=== PATIENT | female | born 1985 | race Two or more races ===

== ENCOUNTER 2024-08-23 18:22 | Emergency (ER) | payer MEDICAID, SELFPAY ==
[2024-08-23 18:25] VITALS: BP 181/114; PULSE 124; RESP 18; TEMP 37.2; O2SAT 96; BMI 33.9
[2024-08-23 19:09] VITALS: PULSE 124; RESP 18; O2SAT 98
--- NOTE | 2024-08-23 19:14 | EKG_ITS ---
[facility] (Formerly [facility]) Test Date: 2024-08-23 Pat Name: MARISA BRANNON Department: Room: - Gender: Female Superintendent General: : 1985 Requested By: ED Temporary Provider Order Number: [id number] Reading MD: ED Temporary Provider Measurements Intervals Brethren Rate: 115 P: 11 NM: 155 QRS: 6 QRSD: 82 T: 25 QT: 320 QTc: 443 Interpretive Statements SINUS TACHYCARDIA LEFT VENTRICULAR HYPERTROPHY AND ST-T CHANGE [VOLTAGE CRITERIA PLUS ST/T ABNORMALITY] No previous ECG available for comparison /[email or web address]/[id number]
--- NOTE | 2024-08-23 19:20 | EDNOTE_ITS ---
ED Chest Pain RME/HPI General Chief Complaint: Chest Pain Stated Complaint: CHEST PAIN Time Seen by Provider: 08/23/24 19:20 Arrival date/time: 08/23/24 18:22 RME / HPI RME / HPI narrative: This section includes all my notes and documentations, including HPI, PE, and ED course. Aguila Chamberlain MD HPI: 39yo female MARÍA from home presents to the ED for a chief complaint of intermittent right-sided chest pain x 2 hours [employer]. Patient describes her pain as sharp in nature. No radiation or migration. Patient took ibuprofen at home with improvement of symptoms. She currently rates her pain a 0 out of 10 in severity. She endorses having a cough and subjective fever for about a week, reporting she has the flu , but has not been swabbed. She denies any chills, N/V or any other associated symptoms. No other complaints reported. ROS: All negative except as documented in HPI. Physical Exam: General: Alert and oriented. Hacking cough noted. Eyes: Conjunctivae and lids clear. ENT: No nasal congestion. Neck: Supple. Heart: Tachycardic. Regular rhythm. Chest tenderness on palpation. Lungs: No respiratory distress. Good air movement with scattered rhonchi. Abdomen: Soft and nontender. Legs: No clubbing, cyanosis, edema. Skin: Warm and dry. Neuro: Alert and oriented X 3. I reviewed all diagnostic test results. My interpretation of the EKG is sinus rhythm with no acute ST?T changes. My interpretation of the chest x-ray is increased bronchial markings. Blood tests and urine tests unremarkable, except hyperglycemia. At this point, diagnoses include chest wall pain and lower respiratory infection. Treatment here included Insulin and Tylenol with Codeine and Zithromax. Significant improvement noted. Recommended a trial of outpatient treatment and outpatient cardiac workup. Based on my best medical judgment, made decision no further evaluation or treatment indicated at this time. Patient understands and agrees to the discharge instructions customized and printed, see below. Discharge instructions from Dr. Chamberlain: 1. After extensive evaluation, there is no life-threatening condition. Such as heart attack or pulmonary embolism (blood clots in your lungs) or pneumothorax ( collapsed lung). 2. Your pain is originating from the chest wall and not from an internal organ. The chest wall has many joints and muscles between the ribs, so sprains and strains are common. 3. Apply ice or heat if helpful. Tylenol/ibuprofen as needed. 4. Your cough is due to bronchitis. --No physical exertion for 3 days to help rest the lungs. ?No smoking or exposure to smoking or pets or dust or cold air. --Zithromax to kill the germs causing the bronchitis. --Albuterol 2 puffs every 4-6 hours today and tomorrow to help keep the airways open. Then as needed for cough or shortness of breath. 5. See a private doctor on 08/26/2024 for recheck and further care. To make sure there is no serious underlying heart condition, ask to help you get more tests for your heart that cannot be done here in the ER. Such as Holter Monitor (cardiac monitoring at home from a day to even a month), heart stress test (on treadmill or with medication), echocardiogram (imaging of your heart structures), heart catherization (checking for blockages in your heart arteries), and a referral to see a [employer]. 6. Seek immediate medical care with worsening or with any concerns. Aguila Chamberlain MD Related Data Previous Rx's ?Medication ?Instructions ?Recorded albuterol sulfate 90 mcg/actuation 2 puff inhalation Q 6H PRN 08/23/24 aerosol inhaler shortness of breath or wheez ing #8.5 grams azithromycin 500 mg tablet 500 mg PO QDAY 3 days #3 ta bs 08/23/24 (Zithromax TRI-ISADORA) Allergies Allergy/AdvReac Type Severity Reaction Status Date / Time No Known Allergies Allergy Verified 08/23/24 19:08 Review of Systems Review of Systems Systems Reviewed: All systems reviewed, normal except as documented Past Medical History Past Medical History CARDIAC: Negative Congestive Heart Failure RESPIRATORY: Negative Chronic Obstructive Pulmonary Disease (COPD) GENITOURINARY: Negative Renal Disease ENDOCRINE: Negative Diabetes Mellitus Type 1 or Diabetes Mellitus Type 2 Social History SMOKING STATUS: Former smoker ED Exam Narrative Physical exam: As noted in HPI. Course Course Course Narrative: CXR is ordered for determining the etiology of chest pain. Quality Measures none Orders Category Date Time Status Bedside COVID-19 Antigen Test NOW Care 08/23/24 19:26 Completed Bedside Influenza A&B Antigen Test NOW Care 08/23/24 19:26 Completed EKG (ED ONLY) *Do not use* NOW Care 08/23/24 19:14 Completed Saline [Insert IV] NOW Care 08/23/24 19:26 Completed EKG (ED Only) Stat Exams 08/23/24 19:14 Draft XR chest 1V portable Stat Exams 08/23/24 19:27 Completed BNP [B-Type Natriuretic Peptide] Stat Lab 08/23/24 19:46 Completed CBC Stat Lab 08/23/24 19:46 Completed CMP [Comprehensive Metabolic Panel] Stat Lab 08/23/24 19:46 Completed D-Dimer Stat Lab 08/23/24 19:46 Completed Magnesium Stat Lab 08/23/24 19:46 Completed RSV [Respiratory Syncytial Virus Ag] Stat Lab 08/23/24 19:27 Ordered TSH [Thyroid Stimulating Hormone] Stat Lab 08/23/24 19:46 Completed Troponin I Stat Lab 08/23/24 19:46 Completed UA, C/S IF [Urinalysis, C/S if Indicated] Stat Lab 08/23/24 19:28 Completed ACETAMINOPHEN w/COD 300-30 [Tylenol w/Cod #3] Med 08/23/24 19:26 Discontinued 2 tab PO X1 ONE Azithromycin Po [Zithromax PO] Med 08/23/24 21:17 Discontinued 500 mg PO X1 ONE Insulin Regular Med 08/23/24 20:50 Discontinued 5 unit IV X1 ONE Vital Signs Vital signs: Vital Signs Temperature 98.9 F 08/23/24 18:25 Pulse Rate 124 H 08/23/24 18:25 Respiratory Rate 18 08/23/24 18:25 Blood Pressure 181/114 H 08/23/24 18:25 Pulse Oximetry (%) 96 08/23/24 18:25 Oxygen Delivery Method Room Air 08/23/24 18:25 Chest Pain MDM Narrative MDM Narrative:: Scribe Attestation: 08/23/24 Lizz Pope am scribing for and in the presence of Dr. Chamberlain. Patient data External records reviewed:: [facility] previous records (Per chart review, patient has no relevant previous ED visits.) Clinical information provided by:: patient and EMS Social determinants that could affect healthcare access:: none Patient has the following chronic illnesses:: none How is presenting disease/condition affected by chronic disease/condition?: no chronic disease Evaluation data The following diagnostics were reviewed and interpreted by me:: lab results, radiology exam(s) and EKG tracing(s) (My interpretation of the EKG is: Sinus tachycardia (115 bpm) with nonspecific ST-T changes. Aguila Chamberlain MD) Lab and/or radiology exams considered but not ordered:: none Interpretation Summary: Chest wall pain, Lower respiratory infection Medications / Prescriptions Medications or Prescriptions considered but not ordered:: none Medication administrations:: Medication Administration History Discontinued Medications Acetaminophen/Codeine Phosphate (Acetaminophen W/Cod 300-30 Tablet) 2 tab PO X1 ONE Stop: 08/23/24 19:27 Last Admin: 08/23/24 19:51 Dose: Not Given Documented By: CVL Non-Admin Reason: Change of Condition Azithromycin (Azithromycin 250 Mg Tablet) 500 mg PO X1 ONE Stop: 08/23/24 21:18 Insulin Human Regular (Insulin Hum Regular 1 Unit/0.01 Ml (Per Unit)) 5 unit IV X1 ONE Stop: 08/23/24 20:51 Last Admin: 08/23/24 21:08 Dose: 5 unit Documented By: LENORE Co-signed By: NATTY Insulin, Tylenol with Codeine, Zithromax Consultations Consultation(s) initiated? (list below): No Diagnosis Chest Pain Differential Diagnosis: fracture of rib, pneumothorax, stable angina, unstable angina pectoris, atypical chest pain, st elevation myocardial infarction, costochondritis and other (COVID/influenza/bronchitis/pneumonia) Most likely diagnosis given after review of the tests above:: Chest wall pain, Lower respiratory infection Admission Indicated Admission indicated?: not indicated Explain why admission is indicated or not indicated:: No criteria for admission. Admission Request Was there a request for admission?: No Disposition Plan Disposition Plan: Discharge Discharge Attestation Discharge Attestation: The patient and all family members were given an opportunity to ask questions and understood the discharge instructions. Discharge instructions specifically effects, indications for sooner follow up or return to the emergency department, and the expected course of current diagnosis. Patient condition: Stable Discharge Plan Plan Patient Disposition: HOME (Self Care) Prescriptions/Referrals Prescriptions/Med Rec: New albuterol sulfate 90 mcg/actuation HFA aerosol inhaler 2 puff inhalation Q6H PRN (Reason: shortness of breath or wheezing) Qty: 8.5 0RF azithromycin [Zithromax TRI-ISADORA] 500 mg tablet 500 mg PO QDAY 3 Days Qty: 3 0RF Referrals: Luis Mckeon MD [Primary Care Provider] - In 1 week Problem List Clinical Impression: Chest wall pain, Lower respiratory infection Patient/Caregiver Discharge Instructions Discharge Activity: activity as tolerated Education Materials: ED Bronchitis, Antibiotics (Child), ED Chest Pain, Uncertain Cause Additional Instructions: Discharge instructions from Dr. Chamberlain: 1. After extensive evaluation, there is no life-threatening condition.? Such as heart attack or pulmonary embolism (blood clots in your lungs) or pneumothorax (collapsed lung). 2. Your pain is originating from the chest wall and not from an internal organ.? The chest wall has many joints and muscles between the ribs, so sprains and strains are common.?? 3. Apply ice or heat if helpful.? Tylenol/ibuprofen as needed. 4. Your cough is due to bronchitis. --No physical exertion for 3 days to help rest the lungs. ?No smoking or exposure to smoking or pets or dust or cold air. --Zithromax to kill the germs causing the bronchitis. --Albuterol 2 puffs every 4-6 hours today and tomorrow to help keep the airways open. Then as needed for cough or shortness of breath. 5. See a private doctor on 08/26/2024 for recheck and further care. To make sure there is no serious underlying heart condition, ask to help you get more tests for your heart that cannot be done here in the ER.? Such as Holter Monitor (cardiac monitoring at home from a day to even a month), heart stress test (on treadmill or with medication), echocardiogram (imaging of your heart structures), heart catherization (checking for blockages in your heart arteries), and a referral to see a [employer].? 6. Seek immediate medical care with worsening or with any concerns.?? Print Language: Lebanese Stand Alone Forms: Rhonda Award Info., Patient Portal Info Letter
--- NOTE | 2024-08-23 19:27 | XR_ITS ---
Examination: AP chest single view Technique one AP portable upright chest single view Exam date and time: 09/23/2024 1938 hrs. Indications: Shortness of breath today. Findings: Normal heart size Lungs are clear. The osseous structures are intact Impression: No active disease
[2024-08-23 19:46] VITALS: BP 147/96; PULSE 117; RESP 18; TEMP 37.3; O2SAT 97
[2024-08-23 20:04] VITALS: BP 158/87; PULSE 109; RESP 18; O2SAT 97
[2024-08-23 20:10] LABS: Basophils % (Auto) 0 % (0-2.5); Eosinophils # (Auto) 0.1 Thou/mm3 (0.0-0.5); Eosinophils % (Auto) 2 % (0-10); Hematocrit 40.2 % (36.0-46.0); Hemoglobin 13.2 g/dL (12.0-16.0); Immature Granulocytes % (Auto) 0 % (0-0); Immature Granulocytes Auto 0.03 Thou/mm3 (0.00-0.00); Lymphocytes # (Auto) 1.3 Thou/mm3 (1.0-4.8); Lymphocytes % (Auto) 17 % (10-50); Mean Corpuscular HGB Conc 32.8 g/dl (31.0-37.0); Mean Corpuscular Hemoglobin 27.7 pg (25.0-35.0); Mean Corpuscular Volume 85 fL (80-100); Monocytes # (Auto) 0.7 Thou/mm3 (0.0-0.8); Monocytes % (Auto) 9 % (0-12); Neutrophils # (Auto) 5.5 Thou/mm3 (1.8-7.7); Neutrophils % (Auto) 72 % (37-80); Nucleated Red Blood Cell % 0 /100 WBC (0); Platelet Count 171 Thou/mm3 (140-440); RDW Standard Deviation 40.9 fL (36.4-46.3); Red Blood Count 4.76 Miln/mm3 (4.00-5.20); White Blood Count 7.6 Thou/mm3 (3.6-11.0)
[2024-08-23 20:26] LABS: B-Type Natriuretic Peptide < 20 pg/mL (0-100)
[2024-08-23 20:29] LABS: Alanine Aminotransferase 46 U/L (10-49); Albumin, Serum 4.3 gm/dL (3.5-5.0); Albumin/Globulin Ratio 1.2 (1.2-2.2); Alkaline Phosphatase 88 U/L (46-116); Anion Gap 10 (7-16); Aspartate Amino Transferase 48 U/L (0-34); BUN/Creatinine Ratio 11 Ratio (12-20); Bilirubin,Total 0.5 mg/dL (0.3-1.2); Blood Urea Nitrogen 9 mg/dL (9-23); Calcium 9.1 mg/dL (8.3-10.6); Calcium (Corrected) 9.1 mg/dL (8.5-10.1); Carbon Dioxide 23.8 mMol/L (20.0-31.0); Chloride 105 mMol/L (98-107); Creatinine (Component) 0.8 mg/dL (0.6-1.3); Globulin 3.7 gm/dL (2.3-3.5); Glucose 309 mg/dL (74-106); Magnesium 1.8 mg/dL (1.6-2.6); Osmolality,Calculated 288 (275-295); Potassium 3.9 mMol/L (3.4-5.1); Sodium 139 mMol/L (136-145); Thyroid Stimulating Hormone 3.73 uIU/mL (0.55-4.78); Troponin I < 0.002 ng/mL (0.0-0.045); eGFR > 60 See Note
[2024-08-23 20:34] LABS: Bilirubin,Urine Negative (Negative); Blood,Urine Negative (Negative); Clarity,Urine Clear (Clear/Hazy); Collection Type, Urine Clean Catch; Color,Urine Colorless (Lt Yel-Yel); Culture Indicated,Urine Not Indicated; Glucose, Urine 4+ (Negative); Ketones,Urine Negative (Negative); Leukocyte Esterase,Urine Negative (Negative); Nitrite,Urine Negative (Negative); PH,Urine 6.5 (5.0-7.0); Protein,Urine Negative (Neg - Trace); RBC,Urine 4 /hpf (0-3); Specific Gravity,Urine 1.038 (1.001-1.035); Squamous Epithelial Cell,Urine 1 /hpf (0-5); Urobilinogen,Urine Negative mg/dL (0.0-1.0); WBC,Urine 2 /hpf (0-5)
[2024-08-23 20:55] LABS: D-Dimer < 250 ng/mL (<600)
[2024-08-23] MEDS: INSULIN HUM REGULAR 1 UNIT/0.01 ML (PER UNIT) 5 UNIT IV (21:08)
[2024-08-23 21:14] VITALS: BP 144/78; PULSE 88; RESP 20; O2SAT 95
[2024-08-23] MEDS: AZITHROMYCIN 250 MG TABLET 500 MG PO (21:27)
[2024-08-23 21:44] LABS: Respiratory Syncytial Virus Ag Negative (Negative)
[2024-08-23 21:45] VITALS: BP 138/100; PULSE 102; RESP 16; O2SAT 97
== END 2024-08-23 21:46 | disposition home or self-care (01) ==
PROVIDERS: Emergency Provider Emergency Medicine; PCP Family Medicine
DX: J22 Unspecified acute lower respiratory infection (principal); R00.0 Tachycardia, unspecified; Z87.891 Personal history of nicotine dependence
CPT/HCPCS: 36415; 71045; 80053; 81001; 83735; 83880; 84443; 84484; 85025; 85379; 87400; 87634; 87811; 93005; 99284; J1815; A9270

== ENCOUNTER 2025-03-18 20:24 | Emergency (ER) | payer MEDICAID, SELFPAY ==
[2025-03-18 20:37] VITALS: BP 156/92; PULSE 98; RESP 18; TEMP 36.7; O2SAT 96; BMI 35.9
[2025-03-18 20:58] LABS: Collection Type, Urine Clean Catch
--- NOTE | 2025-03-18 21:09 | PD.EDNV ---
Nausea/Vomit./Diarrhea-RME/HPI General Chief complaint: Nausea/Vomiting/Diarrhea Stated complaint: NAUSEA Time Seen by Provider: 03/18/25 21:09 Arrival date/time: 03/18/25 20:24 40F with history of DM and seizures presents to ED with 1 day of N.V. Patient denies dysuria and diarrhea. Patient just wants to see if she's . Limitations: no limitations Related Data Previous Rx's ?Medication ?Instructions ?Recorded albuterol sulfate 90 mcg/actuation 2 puff inhalation Q6H PRN 08/23/24 aerosol inhaler shortness of breath or wheezing #8.5 grams ondansetron 4 mg disintegrating 4 mg PO Q8H PRN nausea and 03/18/25 tablet vomiting #14 tabs Allergies Allergy/AdvReac Type Severity Reaction Status Date / Time No Known Allergies Allergy Verified 08/23/24 19:08 Review of Systems Review of Systems Systems Reviewed: All systems reviewed, normal except as documented Gastrointestinal Gastrointestinal: Reports as per HPI and Reports nausea Past Medical History Past Medical History CARDIAC: Negative Congestive Heart Failure RESPIRATORY: Negative Chronic Obstructive Pulmonary Disease (COPD) GENITOURINARY: Negative Renal Disease ENDOCRINE: Positive Diabetes Mellitus Type 2; Negative Diabetes Mellitus Type 1 Social History SMOKING STATUS: Never smoker ED Exam General Limitations: Present no limitations General appearance: Present alert and in no apparent distress Head Head exam: Present atraumatic Neck Neck exam: Present normal inspection, full ROM and trachea midline Chest Chest inspection: Present normal inspection and symmetric chest wall rise Neurological Exam Neurological exam: Present alert and oriented X3 Psychiatric Psychiatric exam: Present normal affect and normal mood Skin Skin exam: Present warm, dry, intact and normal color Course Quality Measures none Orders Category Date Time Status Drug Screen,Urine Stat Lab 03/18/25 20:54 Completed HCG Qualitative,Urine Stat Lab 03/18/25 20:54 Completed Urinalysis, C/S if Indicated Stat Lab 03/18/25 20:54 Completed Vital Signs Vital signs: Vital Signs Temperature 98.1 F 03/18/25 20:37 Pulse Rate 98 03/18/25 20:37 Respiratory Rate 18 03/18/25 20:37 Blood Pressure 156/92 H 03/18/25 20:37 Pulse Oximetry (%) 96 03/18/25 20:37 Oxygen Delivery Method Room Air 03/18/25 20:37 O2 at 96% on RA and WNLs Nausea/Vomiting/Diarrhea MDM Narrative MDM Narrative:: 40F with history of DM and seizures presents to ED with 1 day of N.V. Patient denies dysuria and diarrhea. Patient just wants to see if she's . Physical exam reveals well-appearing female. Speech normal. Gait normal. Patient is afebrile, calm, and alert. HCG/tox screen neg. UA only glucose, but normal ketones. Meds and crisis intervention counselor given. Patient data External records reviewed:: [facility] previous records Clinical information provided by:: patient Social determinants that could affect healthcare access:: none Patient has the following chronic illnesses:: DM and seizures How is presenting disease/condition affected by chronic disease/condition?: exacerbated by Evaluation data The following diagnostics were reviewed and interpreted by me:: lab results Lab and/or radiology exams considered but not ordered:: ordered Interpretation Summary: above Medications / Prescriptions Medications / Prescriptions considered but not ordered:: not ordered Medication administrations:: n/a Consultations Consultation(s) initiated? (list below): No Diagnosis Nausea Differential Diagnosis: traveler's diarrhea, food poisoning, gastroenteritis, clostridium difficile infection, drug-induced nausea and vomiting, dehydration and other (DKA, , drug use) Most likely diagnosis given after review of the tests above:: N/V Admission Indicated Admission indicated?: not indicated Admission Request Was there a request for admission?: No Disposition Plan Disposition Plan: Discharge Discharge Attestation Discharge Attestation: The patient and all family members were given an opportunity to ask questions and understood the discharge instructions. Discharge instructions specifically effects, indications for sooner follow up or return to the emergency department, and the expected course of current diagnosis. Patient condition: Stable Discharge Plan Plan Patient Disposition: HOME (Self Care) Discharge Disposition comment: Stable Prescriptions/Referrals Prescriptions/Med Rec: New ondansetron 4 mg tablet,disintegrating 4 mg PO Q8H PRN (Reason: nausea and vomiting) Qty: 14 0RF No Action albuterol sulfate 90 mcg/actuation HFA aerosol inhaler 2 puff inhalation Q6H PRN (Reason: shortness of breath or wheezing) Qty: 8.5 0RF Referrals: Luis Mckeon MD [Primary Care Provider, Family Practice] - In 1 week Problem List Clinical Impression: Nausea Patient/Caregiver Discharge Instructions Education Materials: ED Vomiting (Adult) Additional Instructions: Please follow-up with PCP within 24-48 hours and return immediately if symptoms worsen. Keep hydrated. Advance diet as tolerated. Print Language: Maltese Stand Alone Forms: Patient Portal Info Letter PA/RODENT EXTERMINATOR Supervising Physician HERNANDEZ/RODENT EXTERMINATOR Supervising Physician: Dr. Young
[2025-03-18 21:10] LABS: Amphetamine/Methamp Scrn,U Negative (Negative); Barbiturate Screen,Urine Negative (Negative); Benzodiazepines Screen,Urine Negative (Negative); Benzoylecgonine Screen, Ur Negative (Negative); Fentanyl Screen,Urine Negative (Negative); Opiate Screen,Urine Negative (Negative); THC Screen,Urine Negative (Negative)
[2025-03-18 21:15] LABS: Amorphous Crystals,Urine Present (Absent); Bacteria,Urine Rare; Bilirubin,Urine Negative (Negative); Blood,Urine Trace (Negative); Clarity,Urine Clear (Clear/Hazy); Color,Urine Lt-Yellow (Lt Yel-Yel); Culture Indicated,Urine Not Indicated; Glucose, Urine 4+ (Negative); Hyaline Casts,Urine < 1 /hpf (0-1); Ketones,Urine Trace (Negative); Leukocyte Esterase,Urine Negative (Negative); Nitrite,Urine Negative (Negative); PH,Urine 5.5 (5.0-7.0); Protein,Urine Negative (Neg - Trace); RBC,Urine < 1 /hpf (0-3); Specific Gravity,Urine 1.032 (1.001-1.035); Squamous Epithelial Cell,Urine 1 /hpf (0-5); Urobilinogen,Urine Negative mg/dL (0.0-1.0); WBC,Urine 2 /hpf (0-5)
[2025-03-18 21:17] LABS: HCG Qualitative,Urine Negative
== END 2025-03-18 21:52 | disposition home or self-care (01) ==
PROVIDERS: Physician Assistant; Emergency Provider Emergency Medicine; PCP Family Medicine
DX: R11.0 Nausea (principal)
CPT/HCPCS: 80307; 81001; 81025; 99283